=== PATIENT | male | born 1940 | race Caucasian/White ===

== ENCOUNTER 2017-11-07 01:55 | Emergency (ER) | payer BC, MEDICARE ==
[~2017-11-07] VITALS: Ht 167.6 cm; Wt 66.4 kg
[~2017-11-07 01:55] MED LIST: AMLO5TAB2 PO; ATOR40TA78 PO; CIPR500T87 PO; HYDR12.53 PO; LEVE500T13 PO; METO25TA35 PO; WARF-36 PO
[2017-11-07 02:51] LABS: BASOPHILS # (AUTO) 0.02 x10^3/uL (0-0.1); BASOPHILS % (AUTO) 0 % (0-1); EOSINOPHILS % (AUTO) 3 % (1-7); LYMPHOCYTES % (AUTO) 15 % (22-44); MD NO; MEAN CORPUSCULAR HEMOGLOBIN 29.7 pg (27.5-34.5); MEAN CORPUSCULAR VOLUME 87.1 fL (81-97); MEAN PLATELET VOLUME 8.3 fL (7.4-10.4); MONOCYTES # (AUTO) 0.41 x10^3/uL (0.2-0.8); MONOCYTES % (AUTO) 5 % (2-9); NEUTROPHILS # (AUTO) 6.26 x10^3/uL (1.8-6.8); NEUTROPHILS % (AUTO) 77 % (42-75); PLATELET COUNT 194 x10^3/uL (130-400); RED BLOOD COUNT 5.27 x10^6/uL (4.38-5.82); RED CELL DISTRIBUTION WIDTH 15.8 % (9.4-14.8)
[2017-11-07 03:00] LABS: INTERNATIONAL NORMALIZED RATIO 2.89 (0.93-1.1); PROTHROMBIN TIME 29.4 Seconds (9.6-11.5)
[2017-11-07 03:03] LABS: ALANINE AMINOTRANSFERASE 34 U/L (12-78); ALBUMIN 3.5 g/dL (3.4-5.0); ANION GAP 10 mmol/L (5-15); CALCIUM 8.7 mg/dL (8.5-10.1); CHLORIDE 109 mmol/L (98-107); CREATININE 1.42 mg/dL (0.7-1.3)
[2017-11-07 03:05] LABS: ALKALINE PHOSPHATASE 67 U/L (45-117); BILIRUBIN,TOTAL 0.8 mg/dL (0.2-1.0); TOTAL PROTEIN 6.7 g/dL (6.4-8.2)
[2017-11-07] MEDS ORDERED: LEVETIRACETAM 500 MG TABLET ONE (03:37)
[2017-11-07 03:41] LABS: MICROSCOPIC NOT IND
[2017-11-07 03:50] LABS: CULTURE INDICATED? NO
[2017-11-07] MEDS ORDERED: LEVETIRACETAM 500 MG TABLET PO SCH (04:00)
[2017-11-07 04:32] VITALS: BP 138/71
== END 2017-11-07 04:52 | disposition home or self-care (01) ==
LOC: ED 03:23
DX: G40.419 Other generalized epilepsy and epileptic syndromes, intractable, without status epilepticus (principal); S01.512A Laceration without foreign body of oral cavity, initial encounter; E78.5 Hyperlipidemia, unspecified; I12.9 Hypertensive chronic kidney disease with stage 1 through stage 4 chronic kidney disease, or unspecified chronic kidney disease; N18.3 Chronic kidney disease, stage 3 (moderate); Z86.73 Personal history of transient ischemic attack (TIA), and cerebral infarction without residual deficits; X58.XXXA Exposure to other specified factors, initial encounter; Y93.89 Activity, other specified; Y99.8 Other external cause status; Y92.89 Other specified places as the place of occurrence of the external cause
CPT/HCPCS: 36415; 70450; 80053; 81003; 84443; 85025; 85610; 85730; 93005; 99285